=== PATIENT | female | born 1935 | race Caucasian/White ===

== ENCOUNTER → 2018-09-19 | Outpatient (CLI) | payer MEDICARE ==
[2016-01-08 13:10] VITALS: BP 130/42
[~2018-09-19] MED LIST: AMIT25TA PO; ARFO15VI NEB; ATEN50TA PO; CLOP75TA PO; DOCU-109 PO; ESOM40CA PO; ESTR0.3T PO; HYDR-2769 PO; IOHEXOL 180 MG/ML 10 ML VIAL. IT ONE; ISOS60TA2 PO; LEVO137T3 PO; LIDOCAINE 1% Multi-Dose 20 ML VIAL. ID ONE; LISI10TA2 PO; METH-38 PO; METH750T2 PO; OXYC1TAB15 PO; OXYC1TAB7 PO; PRAM0.5T5 PO; ROFL500T7 PO; ROPI2TAB6 PO; TEMA15CA PO; TYLENOL ARTHRITIS PO; VENL75CA PO
--- NOTE | 2018-09-19 11:43 | KCIC ---
CT lumbar spine exam History: Stenosis, low back pain, bilateral radiculopathy right greater than left Technique: CT imaging was performed of the lumbar spine after injection for lumbar myelogram. Multiplanar reconstruction images are submitted. Exposure: One or more of the following individualized dose reduction techniques were utilized for this examination: 1. Automated exposure control 2. Adjustment of the mA and/or kV according to patient size 3. Use of iterative reconstruction technique. Comparison: June 29, 2018 MR lumbar spine exam Findings: There is again posterolateral fusion hardware, bilateral pedicle screws at L5, L4, L3 attached to vertical rods. Tips of the L5 pedicle screws slightly projects beyond the anterior cortical surface greater on the right. There are again incorporated interbody cages at L4-5. There is again grade 1 anterior spondylolisthesis at L3-4, very minimal posterior subluxation L2 relative to L3. Lumbar vertebral body stature is overall maintained. Conus terminates near L1. There is moderate to severe degenerative disc disease with vacuum phenomenon at L2-3, mild to moderate degenerative disc disease greater posteriorly at L3-4, and minimal narrowing of the L5-S1 intervertebral disc space. There is mild levoscoliosis centered near L2-3. There is negligible right lateral subluxation of L2 relative to L3. There is scattered calcified plaque of the abdominal aorta. T12-L1: Neural foramina and spinal canal are adequate. L1-L2: Spinal canal and neural foramina are adequate. There is mild buckling of the ligamentum flavum and moderate facet degenerative change. L2-L3: There is some artifact created by hardware. There is moderate to severe facet degenerative change greater on the right. There is prominence of posterior epidural fat centrally. There is mild to moderate buckling of the ligamentum flavum. There is some minimal fat density in the more central aspect of the thecal sac compatible with mild fatty filum. At the intervertebral disc space level, there is broad posterior bulge. There is a superimposed gas containing extrusion extending below the intervertebral disc space, inferior extent to approximately the inferior one third of L3 vertebral body. There is indentation upon the ventral thecal sac greater in the right lateral recess, to lesser degree in the left lateral recess. Largest dimension of extrusion is estimated about 2.1 cm CC by about 0.9 cm AP by at least 1 cm transverse in the right lateral recess, estimated about 0.4 cm AP by up to about 0.9 cm transverse by about 1.5 cm CC in the left lateral recess. At the intervertebral disc space level, there is tlim-or-lfsxmkyi narrowing of the far right lateral recess and mild narrowing of the far left lateral recess. At the mid to superior aspect of L3, there is fairly severe right lateral recess stenosis, mild to moderate left lateral recess stenosis. There is impingement of the right L3 nerve root in the right lateral recess, also likely contact of the left L3 nerve root in the left lateral recess. There is mild left and moderate to severe right neural foramina compromise, narrowing on the right from posteriorly by facet. L3-L4: There has been right laminectomy. There is facet hypertrophic change. Spinal canal is overall adequate. Left neural foramen is adequate. There is iswm-jh-muetvhjk narrowing of the distal right neural foramen in part by bulge, contact ventral undersurface exiting right L3 nerve root, also contact of the right L3 nerve root in the right lateral recess above the intervertebral disc space as described for previous level. L4-L5: There has been posterior decompression, spinal canal widely patent. There is facet hypertrophic change. There is very mild narrowing of the left neural foramen from posteriorly, right neural foramen not significantly narrowed. L5-S1: There is prominence of epidural fat in the lateral recesses bilaterally. There is moderate facet hypertrophic change bilaterally. There is again shallow posterior protrusion greater in the left lateral recess, also new shallow extrusion extending above the intervertebral disc space with superior extent to the approximate mid one half of L5 somewhat greater in the left lateral recess. While near, there is no significant displacement of the descending S1 nerve roots, spinal canal overall adequate. Neural foramina are adequate. Impression: 1. There is extrusion extending below the L2-3 intervertebral disc space in the lateral recesses right greater than left, right greater than left lateral recess stenosis most notable near the mid aspect of L3, contact of the L3 nerve roots in the lateral recesses greater on the right. Comparing with the June 2018 exam, there is new shallow extrusion extending above the intervertebral L5-S1 intervertebral disc space without significant impingement of the descending S1 nerve roots. There is neural foramina compromise as stated, moderate to severe narrowing on the right at L2-3 by facet, jqoc-xt-dgzkyrdz narrowing greater distally on the right at L3-4. 2. There is some fusion hardware L3-L5, also incorporated interbody grafts at L4-5. 3. There is again grade 1 anterior spondylolisthesis L3-4, very minimal posterior subluxation L2 relative to L3. 4. There is degenerative disc disease at L2-3 and L3-4. Electronically signed by: Evans Banks MD (09/19/2018 11:40 AM) [facility]-KCIC1
--- NOTE | 2018-09-19 11:49 | KCIC ---
Lumbar Myelogram History: Stenosis, low back pain, bilateral radiculopathy right greater than left, previous surgeries Technique: Patient was informed of the risks of the procedure to include pain, infection, bleeding, seizures, nerve root injury, and allergic reaction to the contrast. Patient was premedicated for exam due to previous history of allergic reaction to contrast. All questions were answered. Patient signed a written consent form for a lumbar myelogram. The patient was placed in a prone oblique position on the flouroscopy table. External site of the lower back was prepped and draped in the usual sterile fashion. Betadine was utilized for cleansing solution. 1% lidocaine was utilized for local anesthesia at the anticipated site of puncture left L1-2 interlaminar space. A 19-gauge guiding needle was advanced into the soft tissues. Through the guiding needle, a 25 gauge Ricardo needle was advanced until there was return of cerebral spinal fluid. Approximately 15 cc of Omnipaque 180 were then injected during fluoroscopic visualization. The needles were removed. Bandage was applied. Fluoroscopic spot images were acquired of the lumbar spine. The patient was then transferred to the CT department for CT examination of the lumbar spine. There were no immediate complications. Fluoroscopy time: 1 minute 17 seconds, 17 images Findings: There is no evidence of myelographic block. There is posterolateral fusion hardware L3, L4, L5 with bilateral pedicle screws attached to vertical rods. There is degenerative disc disease greatest at L2-3 and to lesser degree at L3-4. There is grade 1 anterior spondylolisthesis L3-4 and very minimal posterior subluxation L2 relative to L3. There is anterior extradural defect at L2-3 and posterior to the L3 vertebral body. There is mild lumbar levoscoliosis. Impression: 1. There is degenerative disc disease greatest at L2-3 and to lesser degree at L3-4. There is grade 1 anterior spondylolisthesis L3-4, very minimal posterior subluxation L2 relative to L3. There is anterior extradural defect at L2-3 and posterior to the L3 vertebral body. Electronically signed by: Evans Banks MD (09/19/2018 11:46 AM) [facility]-KCIC1
== END | disposition home or self-care (01) ==
LOC: KCIC 08:39
PROVIDERS: ATTEND Neurological Surgery
DX: M48.061 Spinal stenosis, lumbar region without neurogenic claudication (principal); M43.16 Spondylolisthesis, lumbar region; M51.17 Intervertebral disc disorders with radiculopathy, lumbosacral region; M51.27 Other intervertebral disc displacement, lumbosacral region; M89.38 Hypertrophy of bone, other site; M53.2X6 Spinal instabilities, lumbar region; M47.816 Spondylosis without myelopathy or radiculopathy, lumbar region; I70.0 Atherosclerosis of aorta; J44.9 Chronic obstructive pulmonary disease, unspecified; Z79.01 Long term (current) use of anticoagulants
CPT/HCPCS: 72132; 72265; Q9965

== ENCOUNTER 2018-10-18 08:30 | Inpatient (IN) | payer MEDICARE ==
[~2018-10-18] VITALS: Ht 162.6 cm; Wt 95.3 kg
[~2018-10-18 08:30] MED LIST changes: +BUDE10.22 IH; +CIPR500T PO; +FURO40TA4 PO; +GUAI600T47 PO; -IOHEXOL 180 MG/ML 10 ML VIAL. IT ONE; +LEXAPRO20 MG PO; -LIDOCAINE 1% Multi-Dose 20 ML VIAL. ID ONE; +NITR0.4T SL; +PANT40TA77 PO; +RANI150T2 PO; +TEMA15CA6 PO; +UMEC62.5 IH
--- NOTE | 2018-10-19 15:38 | HP ---
ADMIT DATE: 10/22/2018 PREOPERATIVE HISTORY AND PHYSICAL DATE OF SURGERY: 10/22/2018. HISTORY OF PRESENT ILLNESS: The patient is a pleasant 82-year-old, who in 2016 underwent a lumbar instrumented fusion from L3-L5 and did well from that procedure. Over the last year, she has developed increasing problems with back pain and pain in her right hip and right inguinal region, as well as the right anterior thigh with standing and walking. On the lumbar MRI scan, there was artifact from the hardware and then was unable to be seen clearly at L2-L3, so a lumbar myelogram was obtained. PAST MEDICAL HISTORY: Asthma, chest pain, headache, whiplash, heart disease, hypertension, lung disease, stomach disease, thyroid disease, spinal meningitis. PAST SURGICAL HISTORY: Appendectomy, hysterectomy, cholecystectomy, fatty tumor removal, coronary artery bypass graft, lysis of adhesions, lumbar surgery in 1999, sinus surgery, lumbar fusion in 2001, removal of hardware L4-L5, lumbar laminectomy, L3-L4 and instrumented fusion L3-L4, L4-L5 in 12/2015. FAMILY HISTORY: Cancer, migraines, and diabetes. SOCIAL HISTORY: Retired, . Denies substance abuse or alcohol abuse. Quit smoking 32 years ago. ALLERGIES: TO SULFA, ASPIRIN, PENICILLIN, AND IV CONTRAST DYE. CURRENT MEDICATIONS: Prednisone, ranitidine, levothyroxine, venlafaxine, temazepam, Plavix, amitriptyline, Percocet, Lasix, ropinirole, nitroglycerin, isosorbide, pantoprazole. REVIEW OF SYSTEMS: A 12-point review of systems was obtained and is noncontributory except for that mentioned above. PHYSICAL EXAMINATION: NEUROSURGERY EXAMINATION: GENERAL APPEARANCE: Alert, pleasant, no acute distress. HEAD: Normocephalic and atraumatic. SKIN: Warm and dry, well-healed lumbar incision. MUSCULOSKELETAL: Lumbar paraspinal muscle bulk is normal, restricted range of motion of lumbar spine, nuqy-dx-mrijamqc tenderness of lower lumbar spine with palpation, normal range of motion of the lower extremities bilaterally. EXTREMITIES: No clubbing, cyanosis, or edema. NEUROLOGIC: Alert and oriented x 3, normal recent and remote memory. Strength 5/5 in bilateral lower extremities. Sensory was intact to light touch in lower extremities bilaterally except for decreased over the right anterior thigh. Reflexes are present and symmetric in bilateral lower extremities. Negative straight leg raising bilaterally. Ambulates with a cane. IMAGING: I reviewed a lumbar myelogram and post-myelogram CT scan. On that study, there appears to be herniated disk at L2-L3, which is central and right-sided which extends inferiorly. This is associated with severe compression of the central and right-sided and the disk herniation extends inferiorly to stop at about the upper one-third of the body of L3. ASSESSMENT/PLAN: There is a large inferior disc herniation L2-L3, which is above her previous fusion. In order to gain access in this region, I am going to remove hardware on the right side. I will then perform elective laminectomy at L2-L3 and decompress her. I did discuss all this with her. She understands the technique, as well as the expected postoperative course and she would like to proceed. We will make the arrangements. FARHEEN WOO MD DR: YOLANDA/jessica JOB#: [id number] / [id number] CHANCE
[2018-10-22] VITALS (8 sets, daily range): BP systolic 99–124; BP diastolic 41–67
[2018-10-22] MEDS ORDERED: VANCOMYCIN 1GM IVPB FOR OMNI 250 ML IV PRN (06:00)
[2018-10-22] MEDS ORDERED: BACITRACIN 50,000 UNIT in IV NORMAL SALINE 1000ML BAG 1,000 ML IRR ONE (06:00)
[2018-10-22] MEDS ORDERED: SURGICEL FIBRILLAR 1X2 EACH. ONE (06:15)
[2018-10-22] MEDS ORDERED: THROMBIN TOPICAL 20,000 UNIT SPRAY.SYRN KIT TP ONE (06:15)
[2018-10-22] MEDS ORDERED: LIDOCAINE 1% PF 2 ML VIAL. ID PRN (07:00)
[2018-10-22] MEDS ORDERED: fentaNYL PF VIAL 100 MCG/2 ML VIAL IV PRN ×4 (07:00→14:15)
[2018-10-22] MEDS ORDERED: PROCHLORPERAZINE 10 MG/2 ML VIAL. IV PRN (07:00)
[2018-10-22] MEDS ORDERED: IV RINGERS,LACTATED 1000ML 1,000 ML IV SCH (07:00)
[2018-10-22] MEDS ORDERED: BUPIVAC MPF-EPI 0.5%-1:200000 30 ML VIAL. INJ ONE (07:15)
[2018-10-22] MEDS: fentaNYL PF VIAL 100 MCG/2 ML VIAL IV PRN ×4 (09:54→16:18)
[2018-10-22] MEDS ORDERED: PROPOFOL 50 ML IV ONE ×2 (10:09→13:03)
[2018-10-22] MEDS ORDERED: ONDANSETRON PF 4 MG/2 ML VIAL. ONE (10:09)
[2018-10-22] MEDS ORDERED: REMIFENTANIL 2 MG VIAL. IV ONE (10:09)
[2018-10-22] MEDS ORDERED: PROPOFOL 20 ML IV ONE (10:09)
[2018-10-22] MEDS ORDERED: DEXAMETHASONE SOD PHOS 20 MG/5 ML VIAL. ONE (10:09)
[2018-10-22] MEDS ORDERED: LIDOCAINE 2% PF 5 ML VIAL. ONE (10:09)
[2018-10-22] MEDS ORDERED: ROCURONIUM 50 MG/5 ML VIAL. ONE (10:09)
[2018-10-22] MEDS ORDERED: PHENYLEPHRINE 10 MG/ML VIAL. ONE (10:09)
[2018-10-22] MEDS ORDERED: DESFLURANE > 120 MINUTES IH ONE (10:22)
[2018-10-22] MEDS ORDERED: MINERAL OIL/PETROLATUM,WHITE OPHTH OINT 3.5GM TUBE. ONE (10:25)
[2018-10-22] MEDS ORDERED: 0.9 % SODIUM CHLORIDE 20 ML VIAL. IJ ONE (13:03)
[2018-10-22] MEDS ORDERED: NALOXONE 0.4 MG/ML VIAL. IV PRN (14:15)
[2018-10-22] MEDS ORDERED: oxyCODONE/APAP 5/325 1 TAB TABLET PO PRN (14:15)
[2018-10-22] MEDS ORDERED: ACETAMINOPHEN 325 MG TABLET. PO PRN (14:15)
[2018-10-22] MEDS ORDERED: ONDANSETRON PF 4 MG/2 ML VIAL. IV PRN (14:15)
[2018-10-22] MEDS ORDERED: diphenhydrAMINE HCL 25 MG CAPSULE PO PRN (14:15)
[2018-10-22] MEDS ORDERED: TEMAZEPAM 15 MG CAPSULE PO PRN (14:15)
[2018-10-22] MEDS ORDERED: MAG HYDROX/ALUMINUM HYD/SIMETH 30 ML ORAL.SUSP PO PRN (14:15)
[2018-10-22] MEDS ORDERED: oxyCODONE IR 5 MG TABLET PO PRN (14:15)
[2018-10-22] MEDS ORDERED: TYLENOL ARTHRITIS 650 MG PO PRN (14:15)
[2018-10-22] MEDS ORDERED: CALCIUM CARBONATE 500 MG TAB.CHEW PO PRN (14:15)
[2018-10-22] MEDS ORDERED: MAGNESIUM HYDROXIDE 2,400 MG/30 ML ORAL.SUSP. PO PRN (14:15)
[2018-10-22] MEDS ORDERED: 0.9 % SODIUM CHLORIDE 10 ML DISP.SYRIN. IV PRN (14:15)
[2018-10-22] MEDS ORDERED: NITROGLYCERIN SUBLINGUAL 0.4 MG BOTTLE OF 25. SL PRN (15:00)
[2018-10-22] MEDS ORDERED: fentaNYL PF VIAL 100 MCG/2 ML VIAL ONE ×2 (15:15→16:07)
[2018-10-22] MEDS ORDERED: MORPHINE SULFATE 2 MG/ML VIAL. ONE (15:59)
[2018-10-22] MEDS: MORPHINE SULFATE 2 MG/ML VIAL. IV PRN ×2 (16:02→16:15)
[2018-10-22] MEDS ORDERED: HYDROmorphone 2 MG/ML VIAL ONE (16:27)
[2018-10-22] MEDS: HYDROmorphone 2 MG/ML VIAL IV PRN ×2 (16:30→16:42)
[2018-10-22] MEDS: METHOCARBAMOL 750 MG TABLET PO PRN (18:13)
[2018-10-22] MEDS: PANTOPRAZOLE 40 MG TABLET.DR. PO SCH (18:13)
[2018-10-22] MEDS: oxyCODONE/APAP 5/325 1 TAB TABLET PO PRN (18:14)
--- NOTE | 2018-10-22 18:34 | NUR ---
Rec'd from PACU per bed, alert/oriented, dressing to lumbar area, clean, dry & intact with ice pack in place for comfort, states discomfort level 6/10, bilateral VARGAS hose & SARA in place, IVF infusing into right wrist, saline lock in place RFA, oxygen @ 4l/nc, daughter at bedside oriented to surroundings, call light in reach, bed alarm activated
--- NOTE | 2018-10-22 18:39 | NUR ---
Ambulated to bathroom with 1 person assist & LSO in place when up, given Percocet & Robaxin for discomfort prior to ambulation.
[2018-10-22] MEDS: BUDESONIDE 0.5 MG/2 ML NEBU. NEB SCH (19:16)
[2018-10-22] MEDS: ALBUTEROL SULFATE 2.5 MG/3 ML NEBU. NEB SCH (19:16)
[2018-10-22] MEDS: POTASSIUM CL 20MEQ D5-0.45NACL 1,000 ML IV SCH (19:52)
[2018-10-22] MEDS: DOCUSATE SODIUM 100 MG CAPSULE. PO SCH (20:36)
[2018-10-22] MEDS ORDERED: AMITRIPTYLINE HCL 25 MG TABLET. PO SCH (21:00)
--- NOTE | 2018-10-22 21:30 | NUR ---
bladder scan pt showing greater than 262 ml pt denies pressure on bladder area
[2018-10-22] MEDS ORDERED: ceFAZolin SODIUM IV Push 1 GM VIAL. IVP SCH (22:00)
[2018-10-22] MEDS ORDERED: VANCOMYCIN 1 GM in IV NORMAL SALINE 250ML 250 ML IV ONE (23:00)
[2018-10-22] MEDS ORDERED: VANCOMYCIN 1GM IVPB FOR OMNI 250 ML IV ONE (23:00)
[2018-10-23] MEDS: oxyCODONE/APAP 5/325 1 TAB TABLET PO PRN ×2 (02:25→10:28)
[2018-10-23 02:31] VITALS: BP 119/54
[2018-10-23] MEDS: POTASSIUM CL 20MEQ D5-0.45NACL 1,000 ML IV SCH (05:20)
[2018-10-23] MEDS ORDERED: LEVOTHYROXINE 137 MCG TABLET PO SCH (06:00)
[2018-10-23] MEDS: METHOCARBAMOL 750 MG TABLET PO PRN (06:29)
[2018-10-23 06:36] VITALS: BP 128/57
[2018-10-23] MEDS: ALBUTEROL SULFATE 2.5 MG/3 ML NEBU. NEB SCH ×2 (07:25→11:11)
[2018-10-23] MEDS: BUDESONIDE 0.5 MG/2 ML NEBU. NEB SCH (07:25)
[2018-10-23] MEDS: PANTOPRAZOLE 40 MG TABLET.DR. PO SCH (07:36)
[2018-10-23] MEDS: DOCUSATE SODIUM 100 MG CAPSULE. PO SCH (08:37)
[2018-10-23] MEDS ORDERED: ISOSORBIDE MONONITRATE ER 30 MG TAB.ER.24H PO SCH (09:00)
[2018-10-23] MEDS ORDERED: rOPINIRole 1 MG TABLET. PO SCH (09:00)
[2018-10-23] MEDS ORDERED: NON FORMULARY ITEM (Ranitidine Hcl 150 MG) PO SCH (09:00)
[2018-10-23] MEDS ORDERED: ESTROGENS, CONJUGATED 0.3 MG TABLET PO SCH (09:00)
[2018-10-23] MEDS ORDERED: CIPROFLOXACIN HCL 250 MG TABLET. PO SCH (09:00)
[2018-10-23] MEDS ORDERED: FUROSEMIDE 40 MG TABLET. PO SCH (09:00)
[2018-10-23] MEDS ORDERED: CITALOPRAM 20 MG TABLET. PO SCH (09:00)
--- NOTE | 2018-10-23 11:00 | NUR ---
Ambulating to bathroom with steady gait using cane. Aware to use back brace when up. No c/o at this time. Cont. monitor.
[2018-10-23 11:08] VITALS: BP 116/60
--- NOTE | 2018-10-23 13:05 | DISCH ---
DISCHARGE INSTRUCTIONS Condition on Discharge Condition on Discharge: Stable Activity After Discharge Activity Instructions for Disc: Activity as tolerated, Avoid exertion Bathing Instructions: Shower-keep dressing dry, No Tub Bath until see Lifting Instructions after Dis: No heavy lifting, No pulling or pushing, Do not lift >10 pounds Exercise Instruction after Dis: Exercise per therapy, Progress as tolerated Driving Instructions after Dis: Do not drive Weight Bearing Status after Di: Full weight bearing, As tolerated Diet after Discharge Diet after Discharge: Regular Additional Diet Restrictions: resume home diet Diet Texture: Regular Wound Incision Care Wound/Incision Care: Ice to area for comfort, Keep wound/cast CDI, Change dressing Other wound/incision instructi: may remove dressing in 48 hours if dry then may shower, no soaking Wound Care Equipment: Dressings Contacting the after DC Call your doctor for: Concerns you may have Follow-Up Follow up with: Dr. Woo's nurse in 2 weeks [phone] Treatment/Equipment after DC Adaptive Equipment Issued: None FARHEEN WOO MD Oct 23, 2018 13:05
--- NOTE | 2018-10-23 14:15 | NUR ---
Discharge instructions given to pt and daughter. Answered questions and concerns. Both verbalized understanding. Pt discharged home.
[2018-10-23] MEDS ORDERED: LACTOBACILLUS RHAMNOSUS GG 1 CAPSULE. PO SCH (21:00)
--- NOTE | 2018-10-25 11:07 | PATHOLOGY ---
[facility] Accession Number: [id number] . 01 Material submitted: . vertebral column - LUMBAR DISC AND DECOMPRESSION . 01 Clinical history: . Lumbar stenosis, herniated disc with radiculopathy . 02 Diagnosis: Segments of fibrocartilaginous and fibroadipose tissue and bone, lumbar disc and decompression: - Degenerative changes of fibrocartilaginous tissue. . (JPM:mm; 10/24/2018) [facility]/10/24/2018 . 02 Comment: There is no evidence of an acute inflammatory process or malignancy. . (JPM:mml; 10/24/2018) . 02 Electronically signed: . Shiv Mendoza MD, Pathologist NPI- [id number] . 01 Gross description: . Received in formalin labeled "Radha Jeong, lumbar disc and decompression," are several pieces of glistening, fibrous tissue measuring 4.5 x 4.3 x 2.8 cm in aggregate dimensions, containing small fragments of possible bone. The tissue is submitted representatively in cassette A1, following decalcification (TSD; 10/23/2018) TOB/TOB . 02 Pathologist provided ICD-10: M51.36 . 02 CPT . 480423, [id number] Specimen Comment: A courtesy copy of this report has been sent to Specimen Comment: [phone], . Specimen Comment: Report sent to / DR COPE Performed at: 01 [facility] [address], [place] [id number] MD Kalyan Mckinney MD Phone: [phone] Performed at: 02 [facility] [id number] MD Shiv Mendoza MD Phone: [phone]
--- NOTE | 2018-10-25 19:51 | OP ---
DATE OF SURGERY: 10/22/2018 PREOPERATIVE DIAGNOSES: 1. Herniated lumbar disc L2-L3 with large inferior fragment. 2. Previous instrumented lumbar fusion L3 through L5. OPERATION PERFORMED: 1. Removal of hardware, right, L3, L4, L5. 2. Lumbar laminectomy L2-L3. 3. Removal of herniated lumbar disc with large inferior fragment, L2-L3. The operation was done with EMG monitoring, fluoroscopy, microscopic dissection, SSEP monitoring. SURGEON: Terrell Woo MD CONSTRUCTION SERVICES TECHNICIAN: PARTHA Damon assisted with the surgery. She assisted with the removal of the hardware, the exposure, the microdecompression as well as the closure. OPERATIVE INDICATIONS: The patient is a pleasant 82-year-old who in the past has undergone an instrumented fusion from L3-L5 and did well. She then developed extremely severe back and right leg pain which failed conservative measures and on imaging studies, was found to have a large inferiorly herniated disc emanating from the L2-L3 disc space, which was central and right-sided, was markedly compressing the dura and the exiting root on the right. I recommended lumbar microsurgery after she failed to improve with conservative measures. She understood the surgery and the risks, she wished to go ahead. DESCRIPTION OF PROCEDURE: Under general endotracheal anesthesia, the patient was positioned prone on the Paul table. Lumbar region prepped and draped in standard fashion. VARGAS hose and AV impulse boots were applied for DVT prophylaxis. A microscope was draped. Fluoroscopy was draped and brought into the field. Monitoring was established. Vancomycin 1 gram was given prior to surgery. Using fluoroscopic guidance, an incision was made from the superior aspect of L2 to the inferior L3-L4 region, dissected down through skin and subcutaneous tissue and then I worked laterally and visualized the hardware of L3, L4 and L5. I removed the kenzie followed by the screws themselves in these locations and I felt that the fusion in these locations was adequate. I then went to L2-L3, cleared away a great deal of scar after placing self-retaining retractors and then the remainder of surgery was done with microscope using microscopic technique. I burred down a very generous laminectomy at L2-L3 and extended this superiorly and inferiorly virtually all of the body of L3 and all the lamina of L3. I went to the disc space at L2-L3 on the right and visualized the dura and the exiting root performing a foraminotomy and worked actually in the axilla of the L3 root to help perform the discectomy. I gently created a plane beneath the dura on the right side and began to tease back and remove multiple small disc fragments, which extended from the L2-L3 disc inferiorly. I teased these back and then I used the [employer] to help milk further disc fragments back and up and out. As I worked, the entire region became very well decompressed. The nerve root was markedly compressed initiation of the surgery and was markedly decompressing at the termination. I did use small amounts of bone wax for any bone bleeding. I used bipolar cautery where necessary. I irrigated copiously. At this point, then I closed the wound with absorbable sutures in layers. The skin was closed with 4-0 subcuticular stitch. The operation went very well and the patient taken to recovery room in excellent condition. I was quite pleased with the surgery. TERRELL WOO MD DR: YOLANDA/jessica JOB#: [id number] / [id number] CHANCE
== END 2018-10-23 14:15 | disposition home or self-care (01) | DRG 519 ==
LOC: OPSVCIP 10-22 08:08 → 4 SOUTHEST 10-22 17:25
PROVIDERS: ADMIT Neurological Surgery; ATTEND Neurological Surgery
PROC: 01NB0ZZ Release Lumbar Nerve, Open Approach (ICD-10-PCS; 2018-10-22)
PROC: 0QP004Z Removal of Internal Fixation Device from Lumbar Vertebra, Open Approach (ICD-10-PCS; 2018-10-22)
PROC: 00NY0ZZ Release Lumbar Spinal Cord, Open Approach (ICD-10-PCS; 2018-10-22)
PROC: 4A11X4G Monitoring of Peripheral Nervous Electrical Activity, Intraoperative, External Approach (ICD-10-PCS; 2018-10-22)
PROC: 0SB20ZZ Excision of Lumbar Vertebral Disc, Open Approach (ICD-10-PCS; principal; 2018-10-22 10:30)
DX: M51.16 Intervertebral disc disorders with radiculopathy, lumbar region (principal); M51.06 Intervertebral disc disorders with myelopathy, lumbar region; J45.909 Unspecified asthma, uncomplicated; I10 Essential (primary) hypertension; Z95.1 Presence of aortocoronary bypass graft; Z90.49 Acquired absence of other specified parts of digestive tract; Z90.710 Acquired absence of both cervix and uterus; Z98.1 Arthrodesis status; Z83.3 Family history of diabetes mellitus; Z80.9 Family history of malignant neoplasm, unspecified; Z87.891 Personal history of nicotine dependence; Z88.0 Allergy status to penicillin; Z88.2 Allergy status to sulfonamides; Z88.6 Allergy status to analgesic agent; Z91.041 Radiographic dye allergy status; Z86.61 Personal history of infections of the central nervous system; Z79.899 Other long term (current) drug therapy
CPT/HCPCS: 36415; 76000; 86850; 86900; 86901; 88304; 88311; 94640; 94760; A7015; J1100; J1170; J2001; J2270; J2405; J2704; J3010; J3370; J3490; J7030; J7050; J7120; J7613; J7626; G0378